=== PATIENT | female | born 1945 | race Caucasian/White ===

== ENCOUNTER 2022-10-03 19:42 | Emergency (ER) | payer OTHER ==
[~2022-10-03] VITALS: Ht 165.1 cm; Wt 70.5 kg
[2022-10-03 20:32] LABS: Basophils # (auto) 0.1 10 ^3/uL (0-0.2); Basophils % (auto) 0.5 % (0.0-2.0); Eosinophils # (auto) 0 10 ^3/uL (0-0.8); Lymphocytes % (auto) 12.5 % (10.0-50.0); Mean Corpuscular Volume 71.8 fL (80.0-100.0); Nucleated Red Blood Cells % 0.1 %; White Blood Cell 15.6 10^3/uL (4.4-10.8)
[2022-10-03 20:33] LABS: Hematocrit 33.5 % (36.0-46.0); Mean Corpuscular Hemoglobin 23.7 pg (28.0-32.0); Mean Corpuscular Hgb Conc. 32.9 g/dL (32.0-36.0); Monocytes % (auto) 6.7 % (0.0-12.0); Neutrophils # (auto) 12.6 10 ^3/uL (1.6-8.6); Neutrophils % (auto) 80.3 % (37.0-80.0); Red Blood Cells 4.67 10^6/uL (4.0-5.20)
[2022-10-03 20:38] LABS: Red Cell Distribution Width 21.1 % (11.8-14.3)
[2022-10-03 20:40] LABS: Albumin 2.8 g/dL (3.4-5.0); Calcium 8.6 mg/dL (8.5-10.1); Magnesium 1.9 mg/dL (1.6-2.6); Potassium 3.4 mmol/L (3.5-5.1)
[2022-10-03 20:43] LABS: BUN/Creatinine Ratio 12.2 (10.0-20.0); Bilirubin, Total 0.7 mg/dL (0.2-1.0); Total Protein 8.2 g/dL (6.4-8.2)
[2022-10-03 20:57] LABS: INR 1.16 (0.9-1.15); Partial Thromboplastin Time 38.1 SEC (24.5-34.5)
[2022-10-03 22:13] VITALS: PULSE 79; RESP 19; O2SAT 99
[2022-10-03 23:22] LABS: Urine Bacteria FEW /hpf (None Seen); Urine Blood Negative /uL (Negative); Urine Mucus FEW (None Seen); Urine Specific Gravity 1.009 (1.001-1.035); Urine WBC 3 /hpf (0 - 5)
[2022-10-04] MEDS ORDERED: ENALAPRILAT 1.25 MG/ML-1ML VIAL IV ONE (00:30)
[2022-10-04] MEDS ORDERED: ASPirin 81 mg TAB PO ONE (00:30)
[2022-10-04 02:51] LABS: INR 1.19 (0.9-1.15); Partial Thromboplastin Time 35.7 SEC (24.5-34.5)
[2022-10-04 06:53] VITALS: BP 175/48; PULSE 66; RESP 16; TEMP 98.4; O2SAT 97
== END 2022-10-04 07:05 | disposition short-term general hospital (02) ==
LOC: EDBD 19:42 → ER 19:42
DX: I63.9 Cerebral infarction, unspecified (principal); G45.9 Transient cerebral ischemic attack, unspecified; I10 Essential (primary) hypertension; M79.661 Pain in right lower leg; M79.662 Pain in left lower leg; Z88.5 Allergy status to narcotic agent; Z20.822 Contact with and (suspected) exposure to COVID-19
CPT/HCPCS: 36415; 70450; 70496; 71045; 72131; 80053; 81001; 83735; 83880; 84484; 85025; 85610; 85730; 87426; 93005; 96374

== ENCOUNTER 2024-11-29 19:52 | Emergency (ER) | payer OTHER, MEDICAID ==
[~2024-11-29] VITALS: Ht 162.6 cm; Wt 70.3 kg
--- NOTE | 2024-11-29 20:04 | ECG ---
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
[2024-11-29 20:55] VITALS: PULSE 60; RESP 20; O2SAT 96
--- NOTE | 2024-11-29 21:03 | DVH ---
CHEST RADIOGRAPH Indication: Hypertension Technique: Single frontal view of the chest was obtained Comparison: XY CHEST PORTABLE on DOS: 10/03/22 FINDINGS: Lines and Tubes: None Lungs: No focal consolidation. Pleura: No effusion. No pneumothorax. Cardiomediastinal contours: Unremarkable Bones: No acute osseous abnormality. IMPRESSION: 1. No acute cardiopulmonary disease.
--- NOTE | 2024-11-29 21:04 | ED.PDOC ---
History of Present Illness HPI Comments 79-year-old female who came to ER via EMS for high blood pressure. Patient has history of hypertension, takes her hydrochlorothiazide, amlodipine, and clonidine as prescribed. States she has been having elevated blood pressure the whole day, systolic blood pressure >220. She denies any headaches, dizziness, blurred vision, or chest pains REVIEW OF SYSTEMS: General: No fever, no chills, or fatigue HEENT: No sore throat, no earache, no congestion, no neck pain. Cardiac: No chest pain. No palpitations. Lungs: No shortness of breath, no cough. GI: No nausea, no vomiting, no diarrhea, no constipation, no abdominal pain : No dysuria, frequency, or urgency. No hematuria. Musculoskeletal: No joint pain , no joint swelling, no extremity edema. Skin: No rash, no itching. Neuro: No headache, no dizziness, no weakness EXAM: General: Awake, alert and oriented. No acute distress. Skin: Skin in warm, dry and intact. Appropriate color for ethnicity. HEENT: The head is normocephalic and atraumatic. Conjunctivae are clear without exudates or hemorrhage. Sclera is non-icteric. EOM are intact. No signs of nystagmus. Eyelids are normal in appearance without swelling or lesions. Oral mucosa is pink and moist Neck: The neck is supple with normal range of motion. No JVD. Cardiac: Heart rate and rhythm are normal. No murmurs, gallops, or rubs are auscultated. Respiratory: No signs of respiratory distress. Lung sounds are clear in all lobes bilaterally without rales, rhonchi, or wheezes. Abdominal: Abdomen is soft, non-tender without distention. Bowel sounds are present and normoactive in all four quadrants. Extremities: Upper and lower extremities are atraumatic in appearance without deformity or edema. Neurological: The patient is awake, alert and oriented to person, place, and time with normal speech. Speech is clear. There is no facial asymmetry. Psychiatric: Appropriate mood and affect. 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 Was a procedure done?: No EKG EKG : Pulse Rate (adult): 59 Cardiac Rhythm: NSR ST: Inf, Infarct Differential Dx Considerations may include: Hypertensive urgency, anemia, electrolyte imbalance X-Ray, Labs, Meds, VS Vital Signs Date Time Temp Pulse Resp B/P (MAP) Pulse Ox O2 Delivery O2 Flow Rate FiO2 11/30/24 02:34 61 17 171/44 (86) 96 11/30/24 02:32 62 171/44 11/30/24 02:31 171/44 11/30/24 00:39 181/50 11/30/24 00:00 63 18 189/50 (96) 96 11/29/24 22:45 62 201/55 11/29/24 21:28 61 11 184/39 (87) 95 11/29/24 21:04 59 11/29/24 20:55 60 20 96 Room Air* 0 21 11/29/24 20:55 97.3 60 20 184/89 (120) 96 97.3 11/29/24 19:57 98.0 65 16 223/63 98 98.0 11/29/24 19:57 59 Lab Test 11/29/24 23:38 11/29/24 21:56 11/29/24 20:50 Range/Units Troponin I High Sensitivity < 3 L 4 3 L </=34 ng/L White Blood Count 4.9 4.4-10.8 10^3/uL Red Blood Count 4.77 4.0-5.20 10^6/uL Hemoglobin 12.6 12.2-16.2 g/dL Hematocrit 37.2 36.0-46.0 % Mean Corpuscular Volume 77.9 L 80.0-100.0 fL Mean Corpuscular Hemoglobin 26.4 L 28.0-32.0 pg Mean Corpuscular Hemoglobin Concent 33.8 32.0-36.0 g/dL Red Cell Distribution Width 32.5 H 11.8-14.3 % Platelet Count 140 140-450 10^3/uL Mean Platelet Volume 8.7 6.9-10.8 fL Neutrophils (%) (Auto) 37.7 37.0-80.0 % Lymphocytes (%) (Auto) 46.3 10.0-50.0 % Monocytes (%) (Auto) 11.6 0.0-12.0 % Eosinophils (%) (Auto) 3.3 0.0-7.0 % Basophils (%) (Auto) 1.1 0.0-2.0 % Neutrophils # (Auto) 1.8 1.6-8.6 10 ^3/uL Lymphocytes # (Auto) 2.3 0.4-5.4 10 ^3/uL Monocytes # (Auto) 0.6 0-1.3 10 ^3/uL Eosinophils # (Auto) 0.2 0-0.8 10 ^3/uL Basophils # (Auto) 0.1 0-0.2 10 ^3/uL Nucleated Red Blood Cells 0.1 % Platelet Estimate Adequate Anisocytosis (manual) Moderate Microcytosis Slight Target Cells Few Tear Drop Cells Few Sodium Level 141 136-145 mmol/L Potassium Level 4.0 3.5-5.1 mmol/L Chloride Level 106 98-107 mmol/L Carbon Dioxide Level 26 20-31 mmol/L Anion Gap 9 5-15 Blood Urea Nitrogen 13 9-23 mg/dL Creatinine 0.78 0.550-1.02 mg/dL Glomerular Filtration Rate Calc 76 >90 mL/min BUN/Creatinine Ratio 16.7 10.0-20.0 Serum Glucose 98 74-106 mg/dL Calcium Level 9.2 8.7-10.4 mg/dL Current Medications Medications (Trade) Dose Ordered Sig/Jeronimo Route Start Time Stop Time Status Last Admin Labetalol HCl (Labetalol HCl) 5 mg ONCE ONCE IV 11/29/24 22:00 11/29/24 22:02 DC 11/29/24 22:45 Clonidine HCl (Catapres Tablet) 0.1 mg ONCE ONCE PO 11/30/24 00:30 11/30/24 00:31 DC 11/30/24 00:39 Time of 1ST Reevaluation: 20:59 Reevaluation 1ST: Unchanged Patient Education/Counseling: Need For Follow Up Family Education/Counseling: No Family Present SEPSIS Sepsis Screen Date sepsis recognized/suspect: Nov 29, 2024 Time Sepsis recognized/suspect: 2001 Recent Procedure: No On Antibiotic Therapy: No Respiratory Rate >20: No Heart Rate >90: No Temp<36 C (96.8 F) or >38.3 C: No SBP <90 or MAP <65 mmHG: No New Acute Mental Status Change: No Is the patient on CPAP, BIPAP,: No Physician Orders Chest Xray 1 View (11/29/24 20:24) Vital Signs Date Time Temp Pulse Resp B/P (MAP) Pulse Ox O2 Delivery O2 Flow Rate FiO2 11/30/24 02:34 61 17 171/44 (86) 96 11/30/24 02:32 62 171/44 11/30/24 02:31 171/44 11/30/24 00:39 181/50 11/30/24 00:00 63 18 189/50 (96) 96 11/29/24 22:45 62 201/55 11/29/24 21:28 61 11 184/39 (87) 95 11/29/24 21:04 59 11/29/24 20:55 60 20 96 Room Air* 0 21 11/29/24 20:55 97.3 60 20 184/89 (120) 96 97.3 11/29/24 19:57 98.0 65 16 223/63 98 98.0 11/29/24 19:57 59 Laboratory Tests Test 11/29/24 20:50 White Blood Count 4.9 10^3/uL (4.4-10.8) Medications Medications Dose Ordered Sig/Jeronimo Route Start Time Stop Time Status Last Admin Dose Admin Clonidine HCl 0.1 mg ONCE ONCE PO 11/30/24 00:30 11/30/24 00:31 DC 11/30/24 00:39 Labetalol HCl 5 mg ONCE ONCE IV 11/29/24 22:00 11/29/24 22:02 DC 11/29/24 22:45 Departure 1 Departure Time of Disposition: 21:50 Impression: Primary Impression: Hypertensive urgency Disposition: ADMITTED INPATIENT Condition: Stable Additional Instructions: ED DISCHARGE INSTRUCTIONS Instructions: Please read all instructions provided in this packet carefully. Although you have been discharged from the Emergency Department, this does not mean that you have a "clean bill of health". No definitive diagnosis for your symptoms has been made today. It is possible that you are in the process of developing a serious illness. This is why you must return to the ED without fail if any new or worsening symptoms (especially if your symptoms include chest pain, trouble breathing, abdominal pain, fever, headache, confusion, trouble seeing, or trouble walking) It is also very important that you see a your primary care provider in the morning. An appointment has been made for you by Marcia, please contact for information. If you are unable to get an appointment, return to the ED for re-evaluation. What is high blood pressure? Blood pressure is a measure of how hard the blood pushes against the [place] of your arteries. It's normal for blood pressure to go up and down throughout the day. But if it stays up, you have high blood pressure (hypertension). Two numbers tell you your blood pressure. The first (top) number is the systolic pressure. It shows how hard the blood pushes when your heart is pumping. The second (bottom) number is the diastolic pressure. It shows how hard the blood pushes between heartbeats, when your heart is relaxed and filling with blood. High blood pressure means that the top number stays high, or the bottom number stays high, or both. For diagnosis, the top number may be 130 to 140 or higher. The bottom number may be 80 to 90 or higher High blood pressure increases the risk of stroke, heart attack, and other problems. High Blood Pressure Skip Navigation When to Call a Doctor Call 911 anytime you think you may need emergency care. This may mean having symptoms that suggest that your blood pressure is causing a serious heart or bl ood vessel problem. Your blood pressure may be over 180/120. For example, call 911 if: You have symptoms of a heart attack. These may include: Chest pain or pressure, or a strange feeling in the chest. Sweating. Shortness of breath. Nausea or vomiting. Pain, pressure, or a strange feeling in the back, neck, jaw, or upper belly or in one or both shoulders or arms. Lightheadedness or sudden weakness. A fast or irregular heartbeat. You have symptoms of a stroke. These may include: Sudden numbness, tingling, weakness, or loss of movement in your face, arm, or leg, especially on only one side of your body. Sudden vision changes. Sudden trouble speaking. Sudden confusion or trouble understanding simple statements. Sudden problems with walking or balance. A sudden, severe headache that is different from past headaches. You have severe back or belly pain. Do not wait until your blood pressure comes down on its own. Get help right away. Call your doctor now or seek immediate care if: Your blood pressure is much higher than normal (such as 180/120 or higher), but you don't have symptoms. You think high blood pressure is causing symptoms, such as: Severe headache. Blurry vision. Watch closely for changes in your health, and be sure to contact your doctor if: Your blood pressure measures higher than your doctor recommends at least 2 times. That means the top number is higher or the bottom number is higher, or both. You think you may be having side effects from your blood pressure medicine. Your blood pressure can be checked: At a clinic where you work or go to school. At drugstores, health fairs, fitness centers, community centers, fire stations, and ambulance stations. What causes it? Experts don't fully understand the exact cause of high blood pressure. But they know that some things are linked to it. These include aging, drinking too much alcohol, eating a lot of sodium (salt), being overweight, and not exercising. What are the symptoms? High blood pressure doesn't usually cause symptoms. Most people don't know they have it until they go to the doctor for some other reason. Very high blood pressure (such as 180/120 or higher) can cause severe headaches and vision problems. How is it diagnosed? During a routine visit, your doctor will measure your blood pressure. Your doctor may ask you to test it again when you are home.[id number], footnote4 This is because your blood pressure can change throughout the day. To diagnose high blood pressure, your doctor needs to know if your blood pressure is high throughout the day. How is high blood pressure treated? The two types of treatment for high blood pressure are lifestyle changes and medicines. Your doctor may ask you to lose extra weight, eat less sodium, and be more active. If these lifestyle changes don't help enough, you may also need to take daily medicines. What can you do to prevent it? A heart-healthy lifestyle can help you prevent high blood pressure. These changes are even more important if you have risk factors for high blood pressure that you can't change. These risk factors include race, age, and having others in your family who have high blood pressure. Here are some things you can do. Stay at a healthy weight. Eat heart-healthy foods, and limit sodium. Get regular exercise. Limit alcohol to 2 drinks a day for men and 1 drink a day for women. What Happens When blood pressure is high, it starts to damage blood vessels, called arteries, and your heart. Damaged arteries can lead to problems throughout your body. The higher your blood pressure, the greater your risk. This damage doesn't happen all at once. It happens slowly over time. But you can't tell that it's happening, because you don't feel anything. High blood pressure can lead to: Heart failure. High blood pressure makes your heart work harder. And that can lead to heart failure, which means your heart doesn't pump as much blood as your body needs. Heart attack and stroke. High blood pressure can cause atherosclerosis or "hardening of the arteries." This problem happens when the inner lining of an artery is damaged. Fat and calcium can build up in the artery wall. This buildup is called plaque. Over time, plaque can cause problems throughout the body. These problems include coronary artery disease, peripheral artery disease, heart attack, and stroke. Vision loss and kidney disease. Arteries also carry blood and oxygen to organs like your eyes and kidneys. If high blood pressure damages those arteries, it can lead to vision loss and kidney disease. Problems in your brain. High blood pressure can also affect the arteries in your brain, raising the risk of dementia and a stroke caused by bleeding in the brain. High blood pressure usually can't be cured. But it can be controlled. Lowering blood pressure lowers the risk of damaging blood vessels. To lower it, you may make lifestyle changes, take medicines each day, or both. e-Prescriptions No Active Prescriptions or Reported Meds Comments Discussed with with Dowling who was not authorizing admission at this [facility]. Recommendation is to administer additional dose of clonidine, patient will be seen in her PCP's office in the morning. Case [id number] Extensive evaluation was performed in attempt to identify or rule out: (See differential diagnosis section) The following tests were ordered, and results were reviewed by me and discussed with patient: (See diagnostic results section) The following test were independently interpreted by me: EKG I reviewed and agreed with the following test results read by other providers: Chest x-ray Additional information was gathered from interviewing the following independent historians: EMS personnel Discussion of management or test interpretation with external physician/other qualified health day care home provider: Yes Decision regarding hospitalization or escalation of hospital level of care: Risks and benefits of admission for further treatment of patient's condition was considered however due to patient's stable condition patient will be discharged to follow up closely or return to care for worsening of condition or inability to follow up. Critical Care Note Critical Care Time?: No Stability Stability form required: No Heart Score Heart Score: Heart Score Response (Comments) Value History Moderate Suspicious 1 EKG Repolarization Disturb 1 Age >65 2 Risk Factors >3 or Hx ASHD 2 Troponin Normal limit 0 Total 6 I personally scribed for CLARA GARNICA MD ([email or web address]) on 11/29/24 at 21:04. Electronically submitted by Arjun Cohen ([email or web address]). CLARA GARNICA MD Nov 29, 2024 21:04
[2024-11-29 21:14] LABS: Chloride 106 mmol/L (98-107); Hematocrit 37.2 % (36.0-46.0); Hemoglobin 12.6 g/dL (12.2-16.2); Nucleated Red Blood Cells % 0.1 %; Potassium 4.0 mmol/L (3.5-5.1); Sodium 141 mmol/L (136-145)
[2024-11-29 21:15] LABS: Anion Gap 9 (5-15); Calcium 9.2 mg/dL (8.7-10.4); Carbon Dioxide 26 mmol/L (20-31)
[2024-11-29 21:16] LABS: Mean Corpuscular Hemoglobin 26.4 pg (28.0-32.0); Mean Corpuscular Volume 77.9 fL (80.0-100.0)
[2024-11-29 21:20] LABS: BUN/Creatinine Ratio 16.7 (10.0-20.0); Blood Urea Nitrogen 13 mg/dL (9-23); Glucose 98 mg/dL (74-106)
[2024-11-29 21:43] LABS: Anisocytosis Moderate
[2024-11-29 21:44] LABS: Tear Drop Cells FEW
[2024-11-29] MEDS: LABETALOL HCL 20 MG/4 ML VL IV ONE (22:45)
[2024-11-30 03:41] VITALS: BP 165/41; PULSE 61; RESP 10; TEMP 97.3; O2SAT 97
== END 2024-11-30 04:10 | disposition home or self-care (01) ==
LOC: EDBD 19:52 → ER 19:52
DX: I16.0 Hypertensive urgency (principal); I10 Essential (primary) hypertension; E78.5 Hyperlipidemia, unspecified; M19.90 Unspecified osteoarthritis, unspecified site; Z88.5 Allergy status to narcotic agent
CPT/HCPCS: 36415; 71045; 80048; 84484; 85025; 93005; 96374

== ENCOUNTER 2025-01-21 21:45 | Emergency (ER) | payer OTHER, MEDICAID ==
[~2025-01-21] VITALS: Ht 162.6 cm; Wt 68.0 kg
--- NOTE | 2025-01-21 21:58 | ED.PDOC ---
Musculoskeletal HPI Comments This is a 79 year old female PRIYANKA presenting to the ED with chief complaint of leg injury. Patient reports that she had accidentally tripped and fell next to her bed last night, landing on her right knee and hitting her head against her bed frame. Patient relays that she has no head pain at this time, but since the fall, her whole right leg including her thigh, knee, and lower leg has been painful. Patient states she is unable to get out of bed or walk now when normally she is able to walk with assistance. EMS notes patient's BP was in the 240s systolically, which the patient's son has said has been happening for some time despite her taking all of her BP medication as directed. Patient noted to have previous right sided deficits from previous stroke. Patient denies any numbness, weakness, tingling, or further injury. Time Seen by MD: 21:54 Primary Care Provider: MARCIA [place] Notes: Nurses Notes, Medications, Allergies Allergies: Coded Allergies: Codeine (Verified Allergy, Unknown, 07/09/15) Home Meds No Active Prescriptions or Reported Meds Information Source: Patient Mode of Arrival: EMS Location: Right Extremity Location: Leg Timing: Hours Prehospital treatment: None Severity: Moderate Able to Move Extremity: No Bear Weight: No Pain: Moderate Mechanism: Spontaneous Circumstances: Fall Onset of Symptoms: After Trauma Symptoms: Pain DVT Risk Factors: NONE Last Tetanus: Unknown History of: Arthritis Past Medical History PAST MEDICAL HISTORY: Arthritis, CVA, High Lipids, HTN Surgical History (Other): Bilateral hip replacement, right knee replacement 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 History Family History Family History: Reviewed,noncontributory to illness, Unobtainable Social History Smoker: Non-Smoker Alcohol: Denies ETOH Use Drugs: Denies Drug Use Lives In: Home Constitutional: denies: chills, diaphoresis, fatigue, fever, malaise, sweats, weakness, others EENTM: denies: blurred vision, double vision, ear bleeding, ear discharge, ear drainage, ear pain, ear ringing, eye pain, eye redness, hearing loss, mouth pain, mouth swelling, nasal discharge, nose bleeding, nose congestion, nose pain, photophobia, tearing, throat pain, throat swelling, voice changes, others Respiratory: denies: cough, hemoptysis, orthopnea, SOB at rest, shortness of breath, SOB with excertion, stridor, wheezing, others Cardiovascular: denies: chest pain, dizzy spells, diaphoresis, Dyspnea on exertion, edema, irregular heart beat, left arm pain, lightheadedness, palpitations, PND, syncope, others Gastrointestinal: denies: abdomen distended, abdominal pain, blood streaked bowels, constipated, diarrhea, dysphagia, difficulty swallowing, hematemesis, melena, nausea, poor appetite, poor fluid intake, rectal bleeding, rectal pain, vomiting, others Genitourinary: denies: abnormal vagina bleeding, burning, dyspareunia, dysuria, flank pain, frequency, hematuria, incontinence, pain, , vagina discharge, urgency, others Neurological: denies: dizziness, fainting, headache, left sided numbness, left sided weakness, numbness, paresthesia, pre-existing deficit, right sided numbness, right sided weakness, seizure, speech problems, tingling, tremors, weakness, others Musculoskeletal: reports: others (Rt leg pain); denies: back pain, gout, joint pain, joint swelling, muscle pain, muscle stiffness, neck pain Integumetry: denies: bruises, change in color, change in hair/nails, dryness, laceration, lesions, lumps, rash, wounds, others Allergic/Immunocompromised: denies: Difficulty Healing, Frequent Infections, Hives, Itching, others Hematologic/Lymphatic: denies: anemia, blood clots, easy bleeding, easy bruising, swollen glands, others Endocrine: denies: excessive hunger, excessive sweating, excessive thirst, excessive urination, flushing, intolerance to cold, intolerance to heat, unexplained weight gain, unexplained weight loss, others Psychiatric: denies: anxiety, bipolar disorder, depression, hopeless, panic disorder, schizophrenia, sleepless, suicidal, others All Other Systems: Reviewed and Negative Physical Exam General Appearance: No Apparent Distress, Normal HEENT: Normal ENT Inspection, Pharynx Normal, TMs Normal Neck: Full Range of Motion, Non-Tender, Normal, Normal Inspection Respiratory: Chest Non-Tender, Lungs Clear, No Accessory Muscle Use, No Respiratory Distress, Normal Breath Sounds Cardiovascular: No Edema, No JVD, No Murmur, No Gallop, Normal Peripheral Pulses, Regular Rate/Rhythm Breast Exam: Deferred Gastrointestinal: No Organomegaly, Non Tender, No Pulsatile Mass, Normal Bowel Sounds, Soft Genitalia: Deferred Pelvic: Deferred Rectal: Deferred Extremities: No calf tenderness, Normal capillary refill, Normal inspection, No rmal range of motion, Non-tender, No pedal edema Musculoskeletal : Location: Right Extremity Location: Leg Apperance: Tenderness (No obvious leg shortening. Tenderness to the right thigh, knee, and lower leg.) Neurologic: Alert, hand bender II-XII nml as Tested, No Motor Deficits, Normal Affect, Normal Mood, No Sensory Deficits Cerebellar Function: Normal Reflexes: Normal Skin: Dry, Normal Color, Warm Lymphatic: No Adenopathy Was a procedure done? Was a procedure done?: No Differential Diagnosis EXT Differential Diagnosis: Fracture, Sprain, Dislocation, Contusion, Strain X-Ray, Labs, Meds, VS Vital Signs Date Time Temp Pulse Resp B/P (MAP) Pulse Ox O2 Delivery O2 Flow Rate FiO2 01/22/25 00:00 98.4 55 15 206/50 (101) 94 98.4 01/21/25 22:22 Room Air* 0 21 01/21/25 22:05 98.1 69 18 228/61 (116) 95 98.1 01/21/25 21:54 97.6 70 18 248/64 98 97.6 X-Ray, Labs, Meds, VS Comment SPOKE WITH DR. ESQUEDA, KENNEDY EP RP, AFTER DISCUSSING WITH FAMILY THE NEED FOR CARE, IT WAS RECOMMENDED THAT PATIENT BE TRANSFERRED TO [facility] FOR PAIN MANAGEMENT AND ASSISTANCE. AUTHORIZATION NUMBER [id number] DR. ESQUEDA RECOMMEND CT OF THE RIGHT LOWER EXTREMITY TO RULE OUT OCCULT FRACTURE. PATIENT WILL BE TRANSFERRED ONCE THE CT SCAN REPORT DONE. NOSE CONCERNS THAT PATIENT'S BLOOD PRESSURE, DOCTOR WAS ABLE TO CONFIRM THAT PATIENT HAS HAD EPISODES OF HIGH BLOOD PRESSURE ON THEIR OWN, THIS IS NOT A NEW SYMPTOM FOR HER. PATIENT IS CURRENTLY ASYMPTOMATIC. Time of 1ST Reevaluation: 22:53 Reevaluation 1ST: Unchanged Patient Education/Counseling: Diagnosis, Treatment Family Education/Counseling: No Family Present Assigned to Dr. GARNICA Departure 1 Departure Time of Disposition: 02:23 Impression: Primary Impression: Contusion of right leg Qualified Codes: S80.11XA - Contusion of right lower leg, initial encounter Disposition: 02 SHORT TERM HOSPITAL Condition: Stable e-Prescriptions No Active Prescriptions or Reported Meds Discharged With: Self Critical Care Note Critical Care Time?: No Stability Stability form required: No Heart Score Heart Score: Heart Score Response (Comments) Value History N/A 0 EKG N/A 0 Age N/A 0 Risk Factors N/A 0 Troponin N/A 0 Total 0 I personally scribed for BRAVO DUENAS ([email or web address]) on 01/21/25 at 21:58. Electronically submitted by Shaheen Herndon ([email or web address]). BRAVO DUENAS Jan 21, 2025 21:58
--- NOTE | 2025-01-21 22:58 | DVH ---
CLINICAL HISTORY: fall TECHNIQUE: 3 views of the right hip were obtained. COMPARISON: None FINDINGS: There are bilateral hip arthroplasties. No periprosthetic fracture or lucency is seen. No soft tissue abnormality is evident. IMPRESSION: Bilateral hip arthroplasties. No acute fracture seen.
--- NOTE | 2025-01-21 23:02 | DVH ---
EXAM: XY R KNEE 3V XRAY REASON FOR EXAM: fall. Pain. TECHNIQUE: AP, lateral, and oblique views of the right knee are submitted for review. COMPARISON: None FINDINGS: There is a knee prosthesis. No patellar component of the knee prosthesis is identified. There is severe narrowing of the patellofemoral joint space. No acute fracture is identified. The soft tissues are grossly unremarkable. IMPRESSION: No radiographic evidence of acute fracture.
--- NOTE | 2025-01-21 23:05 | DVH ---
EXAM: XY R FEMUR XRAY REASON FOR EXAM: fall. Pain. TECHNIQUE: AP and lateral views of the right femur are submitted for review. COMPARISON: XY R KNEE 3V XRAY on DOS: 01/21/25, XY R HIP COMPLETE XRAY on DOS: 01/21/25 FINDINGS: There is no acute fracture or dislocation. There are hip and knee prostheses. There is no periprosthetic lucency to suggest loosening. The soft tissues are grossly unremarkable. IMPRESSION: No radiographic evidence of acute fracture or dislocation.
[2025-01-22 02:43] LABS: Urine Protein, UAD 1+ (Negative)
--- NOTE | 2025-01-22 05:10 | DVH ---
CLINICAL INDICATION: Injury TECHNIQUE: Noncontrast CT of the right lower extremity was performed. Sagittal and coronal reformatted images are provided. COMPARISON: XY R FEMUR XRAY on DOS: 01/21/25 CT Dose: CTDI volume is 13.3 mGy. Dose-length product is 1420.7 mGy*cm FINDINGS: Please note that large [id number] limits evaluation for fractures. Additionally, there is extensive streak artifact from right hip prosthesis and a long stemmed, constrained total knee replacement which limits evaluation. No fracture or dislocation. Soft tissue swelling of the anterior distal thigh and the foot. No fluid collection. IMPRESSION: 1. Large [id number] and streak artifact from hardware both limit evaluation for subtle fractures. 2. No acute fracture or dislocation. 3. Soft tissue swelling in the lower extremity. No fluid collection. All CT scans at this medical facility are performed using dose modulation techniques as appropriate to a performed exam including the following: Automated exposure control was utilized; adjustment of the MA and/or KV according to patient size; and use of iterative reconstruction technique.
[2025-01-22] MEDS: hydrALAZINE HCL 20 MG/ML VL IV ONE (09:15)
[2025-01-22] MEDS: hydrALAZINE HCL 20 MG/ML VL ONE (09:16)
[2025-01-22 09:23] VITALS: BP 212/52; PULSE 70; RESP 20; TEMP 98.3; O2SAT 97
== END 2025-01-22 09:40 | disposition short-term general hospital (02) ==
LOC: ER 21:45 → EDBD 21:45 → ER 01-22 09:40
DX: S80.11XA Contusion of right lower leg, initial encounter (principal); Z79.899 Other long term (current) drug therapy; I10 Essential (primary) hypertension; W01.10XA Fall on same level from slipping, tripping and stumbling with subsequent striking against unspecified object, initial encounter; Y93.89 Activity, other specified; Y92.89 Other specified places as the place of occurrence of the external cause; Y99.8 Other external cause status
CPT/HCPCS: 73502; 73552; 73562; 73700; 81001; 96374; 99285; J0360